=== PATIENT | male | born 1955 | race Asian ===

== ENCOUNTER 2020-10-29 20:46 | Emergency (ER) | payer OTHER, BC ==
[~2020-10-29] VITALS: Ht 172.7 cm; Wt 70.3 kg
[2020-10-29 20:57] VITALS: BP_SYST 160
--- NOTE | 2020-10-29 20:57 | NUR ---
Patient triaged and placed in waiting room. VSS and patient appears in no acute distress at this time. Accompanied by , awaiting available bed, and MD notified of need for MSE.
--- NOTE | 2020-10-29 21:01 | NUR ---
ER Dr. Teixeira at bedside examining patient.
== END 2020-10-29 22:04 | disposition home or self-care (01) ==
LOC: SED 20:46
DX: S39.012A Strain of muscle, fascia and tendon of lower back, initial encounter (principal); S16.1XXA Strain of muscle, fascia and tendon at neck level, initial encounter; V49.49XA Driver injured in collision with other motor vehicles in traffic accident, initial encounter; Y93.89 Activity, other specified; Y92.413 State road as the place of occurrence of the external cause; Y99.8 Other external cause status
CPT/HCPCS: 99281